=== PATIENT | male | born 1955 | race Caucasian/White ===

== ENCOUNTER 2020-07-23 08:05 | Emergency (ER) | payer SELFPAY ==
[~2020-07-23] VITALS: Ht 162.6 cm; Wt 82.0 kg
[2020-07-23 08:13] VITALS: BP 139/77
[2020-07-23] MEDS ORDERED: ACETAMINOPHEN 325MG TABLET PO ONE (09:00)
[2020-07-23] MEDS ORDERED: BACITRACIN ZINC OINT UDPKT TOP ONE (10:15)
== END 2020-07-23 09:58 | disposition home or self-care (01) ==
LOC: ER 08:05
DX: S61.512A Laceration without foreign body of left wrist, initial encounter (principal); W26.8XXA Contact with other sharp object(s), not elsewhere classified, initial encounter; Y93.89 Activity, other specified; Y92.018 Other place in single-family (private) house as the place of occurrence of the external cause
CPT/HCPCS: 12002; 99282

== ENCOUNTER 2020-07-25 11:22 | Emergency (ER) | payer SELFPAY ==
[~2020-07-25] VITALS: Ht 165.1 cm; Wt 75.0 kg
[2020-07-25 11:25] VITALS: BP 148/63
== END 2020-07-25 11:47 | disposition home or self-care (01) ==
LOC: ER 11:22
DX: S61.412D Laceration without foreign body of left hand, subsequent encounter (principal); X58.XXXD Exposure to other specified factors, subsequent encounter; Z48.00 Encounter for change or removal of nonsurgical wound dressing
CPT/HCPCS: 99281